=== PATIENT | female | born 1945 | race Caucasian/White ===

== ENCOUNTER 2025-04-11 14:21 | Emergency (ER) | payer BC, SELFPAY ==
[2025-04-11 14:24] VITALS: BP 146/99
--- NOTE | 2025-04-11 14:37 | ED.GENMED ---
History of Present Illness
General
Chief Complaint: Fainting/Passed Out
Source: patient
Exam Limitations: none
Time Seen by Provider: 04/11/25 14:26
History of Present Illness
History of Present Illness:
79yoF with a history of hypertension, seasonal allergies, and asthma presenting via EMS for evaluation after syncopal episode. 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 She was getting her hair blow dried when
she started to feel lightheaded. She was going to ask for a glass of water but the next thing she remembers is several employees hovering around her telling her she passed out. Patient does not believe she passed out and if she did, she believes
it was only for a few seconds. The employees told her that she appeared very pale and was sweaty. There was seizure-like activity reported although she denies any tongue biting, incontinence, or postictal period. EMS arrived a few minutes later
and she was awake and alert. SBP was in the 80s and she was given IV fluids with improvement. Patient has no complaints at this time and states she feels normal. She is frustrated that an ambulance was called and that she is in the ED. She
denies any chest pain, shortness of breath, palpitations. No further dizziness.
Phy Exam
General Physical Exam
General Presentation: well appearing and no apparent distress
General Skin: warm and dry
General Habitus: normal
General Mental: alert
ENT Exam
ENT Exam: normocephalic and other (No evidence of tongue injury)
Eye Exam
Eye Exam: PERRL and conjunctiva normal
Cardiovascular Exam
Cardiovascular Exam: regular rate/rhythm, no edema and no murmur
Pulmonary Exam
Pulmonary Exam: lungs clear, no respiratory distress, no rales, no crackles, no rhonchi and no wheezing
Neurological Exam
Neurological Exam: alert
Meredith Coma Scale
Eye Opening: Spontaneous
Verbal Response: Oriented
Motor Response: Obeys Commands
GCS Total Score: 15
Skin Exam
Skin Exam: normal color and warm/dry
Psychiatric Exam
Psychiatric Exam: normal mood/affect
Course
Orders/Labs/Results
Orders:
Orders
04/11/25 14:24
Electrocardiogram (*1) Urgent
Reason for Study: Chest Pain
EKG- Treatment ONCE
04/11/25 14:32
Complete Blood Count/With Diff Urgent
Comprehensive Metabolic Panel Urgent
04/11/25 14:37
Cardiac Monitoring- Treatment ONCE
04/11/25 14:48
Troponin I Urgent
04/11/25 16:01
EKG- Treatment ONCE
04/11/25 17:00
Electrocardiogram (*1) Urgent
Reason for Study: Syncope
04/11/25 17:16
Troponin I Urgent
Abnormal Lab Results
04/11/25
14:32
RBC 3.87 L 10^6/uL
(4.20-5.40)
MCH 33.1 H pg
(27.0-31.0)
Monocytes % 10.1 H %
(1.7-9.3)
Chloride 110 H mmol/L
(98-107)
BUN 27 H mg/dl
(7-17)
Glucose 152 H mg/dl
(70-99)
Calcium 8.1 L mg/dl
(8.4-10.2)
Albumin 3.4 L g/dl
(3.5-5.0)
04/11/25 14:32
04/11/25 14:32
Vital Signs
Initial and Last Documented VS:
Initial Vital Signs
Temp Pulse Resp BP Pulse Ox
97.9 F 77 20 146/99 96
04/11/25 14:24 04/11/25 14:24 04/11/25 14:24 04/11/25 14:24 04/11/25 14:24
Last Documented Vital Signs
Temp Pulse Resp BP Pulse Ox
97.9 F 71 16 156/95 97
04/11/25 14:24 04/11/25 18:00 04/11/25 14:45 04/11/25 18:00 04/11/25 18:00
MDM/Problems Addressed
Differential Diagnosis Includes:
79yoF here after a syncopal episode. [place] lightheaded while getting her hair blow dried at a hairdresser appt. Witnessed reported loss of consciousness and seizure like activity. Patient does not believe she passed out. No preceding chest pain, SOB,
palpitations. Now feeling normal. VSS. She is awake, alert, with a GCS of 15. Patient is well-appearing and exam is reassuring. Differential diagnosis includes but is not limited to: Vasovagal episode, convulsive syncope, dehydration, cardiogenic
syncope, doubt seizure as there was no associated incontinence, tongue biting, and patient was not postictal on EMS arrival
Initial ED plan: Will place patient on lunchroom monitor. Check cardiac labs and EKG.
*Pulse Oximetry
SaO2: 96
Oxygen Mode of Delivery: Room air
Patient hypoxic: no (96%)
*EKG
Interpreted by ED Provider?: Yes
EKG Intrepretation Date: 04/11/25
Heart Rate: 70
Rate: normal
Rhythm: sinus
[place]: normal axis
Interval: normal interval
QRS Pattern: low voltage
Ischemia: no ischemia
*Critical Care Note
Total Time (30-74mins, 75-104mins- exclusive of procedures): Not Applicable
Update Note
Update Note:
Labs unremarkable including normal hemoglobin. Glucose 152. EKG shows NSR without ectopy or ischemic changes. Troponin WNL. Repeat troponin/EKG unchanged. No telemetry events throughout ED stay. Patient reassessed multiple times and she remains
asymptomatic. No indication for hospitalization. Advised f/u with PCP and ED return precautions reviewed. Patient discharged in stable condition.
ED Attending Note
-
Portions of this chart may have been created with voice recognition software.� Occasional wrong word or��sound alike� substitutions may have occurred due to the inherent limitations of voice recognition software.
Discharge Plan
Departure
Patient Disposition: Home (Routine Discharge)
Date of Disposition: 04/11/25
Time of Disposition: 18:03
Patient with high blood pressure during this ER visit?: Yes
Discharge Problem:
Syncope
Instructions: Syncope (Fainting) (DC)
Referrals:
Adam Gillespie DO [Family Provider, Family Practice]
Activity Restrictions/Additional Instructions:
Please follow-up with your family doctor in the next 2-3 days. Return to the ER with any new or worsening symptoms.
Interventions
Interventions:
*Risk Screen - Suicide Last Done: 04/11/25 14:24
*General Assessment Last Done: 04/11/25 14:24
*Neglect/Abuse Screening Last Done: 04/11/25 14:24
*ED COVID-19 Vaccine History Last Done: 04/11/25 15:00
*Nursing Disposition Last Done: 04/11/25 18:21
ED- Cardiac Assessment Last Done: 04/11/25 15:00
ED- Neurological Assessment Last Done: 04/11/25 15:00
Discharge Date and Time
Discharge Date/Time: 04/11/25 18:23
Print Language: [place]
[2025-04-11 14:41] LABS: Hematocrit 37.7 % (37.0-47.0); Hemoglobin 12.8 g/dL (12.0-16.0); Mean Corp Hgb Conc. 34.0 g/dL (33.0-37.0); Mean Corpuscular Volume 97.4 fL (81.0-99.0); Nucleated Red Blood Cells % 0 %; Platelet Count 249 10^3/uL (130-400); Red Cell Dist. Width 12.1 % (11.5-14.5)
[2025-04-11 15:00] VITALS: BP 135/78
[2025-04-11 15:02] LABS: ALT (SGPT) 13 U/L (0-35); AST (SGOT) 19 U/L (14-36); Albumin 3.4 g/dl (3.5-5.0); Alkaline Phosphatase 62 U/L (38-126); Blood Urea Nitrogen 27 mg/dl (7-17); Calcium 8.1 mg/dl (8.4-10.2); Carbon Dioxide 29 mmol/L (22-30); Chloride 110 mmol/L (98-107); Glucose 152 mg/dl (70-99); Potassium 3.9 mmol/L (3.5-5.1); Sodium 139 mmol/L (135-145); Total Protein 6.7 g/dl (6.3-8.2); eGFR > 60.00
[2025-04-11 15:35] LABS: Troponin I < 0.012 ng/ml
[2025-04-11 16:00] VITALS: BP 141/100
[2025-04-11 17:01] VITALS: BP 140/89
[2025-04-11 17:49] LABS: Troponin I < 0.012 ng/ml
[2025-04-11 18:00] VITALS: BP 156/95
== END 2025-04-11 18:23 | disposition home or self-care (01) ==
LOC: EMR 14:21
PROVIDERS: Physician Assistant; EMERGENCY PHYSICIAN Emergency Medicine; FAMILY PHYSICIAN Family Medicine
DX: R55 Syncope and collapse (principal); I10 Essential (primary) hypertension; J45.909 Unspecified asthma, uncomplicated
CPT/HCPCS: 99284; 80053; 84484; 85025; 93005